=== PATIENT | male | born 1995 | race Caucasian/White ===

== ENCOUNTER 2019-05-18 13:15 | Outpatient (RCR) | payer OTHER, SELFPAY ==
[2019-05-11 12:56] VITALS: BP 158/76; PULSE 86; RESP 16; BMI 39.5
--- NOTE | 2019-05-11 15:20 | HP.PCM_ITS ---
(1) Burn of second degree of right foot, initial encounter Status: Acute Current Visit: Yes Code(s): T25.221A - Burn of second degree of right foot, initial encounter History of Present Illness Date of Service: 05/11/19 Chief Complaint: burn to 3,4,5 right toes, happened at work 05/08/19 History of Wound: This is a 24-year-old white male who presents to the wound healing center today with complaint of burn to his right foot. 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 This c aused second-degree darnell to his right third, fourth, and fifth toes and to the plantar aspect of his right foot as well. He sought medical attention in the emergency department and has been utilizing Bactroban 3 times a day. He states that his blisters are somewhat improving. Denies any systemic signs of infection at this time such as fever or chills. Denies any drainage. Denies any other aggravating relieving factors. He is taking NSAIDs for pain and swelling. All other systems reviewed and negative with exception of those listed above. He did have his tetanus vaccine updated as well. Past Medical History Surgical History: no surgical history, noncontributory Allergies/Adverse Reactions: Allergies No Known Allergies Allergy (Verified 05/11/19 13:20) Home Medications: Ambulatory Orders Medication Instructions Recorded Naproxen 500 mg PO Q12H PRN 05/11/19 Smoking Status: Never smoker Review of Systems Constitutional: Denies: Chills, Fever, Weight Change Eyes: Denies: Pain, Vision Change HEENT: Denies: Difficulty Hearing, Difficulty Swallowing, Sinus Congestion Cardiovascular: Denies: Chest Pain, Palpitations Respiratory: Denies: Cough, Shortness of Breath Gastrointestinal: Denies: Diarrhea, Nausea, Vomiting Genitourinary: Denies: Dysuria, Hematuria Skin: Reports: Wounds - See HPI Endocrine: Denies: Heat/ Cold Intolerance, Polydipsia, Polyuria Hematologic/ Lymphatic: Denies: Easy Bruising, Easy Bleeding - Physical Exam Vital Signs Pulse Resp BP 86 16 158/76 H 05/11/19 12:56 05/11/19 12:56 05/11/19 12:56 General: Alert, Oriented x3, Cooperative, No apparent distress HEENT: Atraumatic Oral: Moist Mucosa Lungs: Clear to auscultation, Normal air movement, No rhonchi, No wheeze Cardiovascular: Regular rate, Regular Rhythm Abdomen: Soft, Non Tender, Obese Extremities: No clubbing, No cyanosis, No edema, Peripheral Pulses Normal Skin: Ulcer/ Wound - Second-degree burn with blisters present to right third fourth and fifth toe on the plantar aspect, also blistering noted to the right plantar midfoot and right lateral foot as well, no redness, streaking, or warmth noted at this time Wound Measurements and Assessment WC - Nurse 1 - General Ulcer Measurement Start: 05/11/19 12:54 Freq: Status: Active Protocol: Activity Type Activity Date Activity User E-Sign Co-Sign Detail Recorded Client Recorded Date Recorded By Document 05/11/19 12:56 [facility] [id number] 05/11/19 13:19 [facility] 05/11/19 12:56 Wound Center Nurse 1 [Ulcer Assessment] #3- R LATERAL FOOT (BURN) -Combined with other wound No -Current Size (cm) - Length 1.3 -Current Size (cm) - Width 0.9 -Current Size (cm) - Depth 0.1 -Total Square Cm 1.17 -Photo Taken No -Epithelialization None Present -Tunneling No -Undermining/Tunneling No -Circular Undermining No -Exudate Amt None Present -Texture (Yamilex-wound Skin Appearance) Assessed -Moisture (Yamilex-wound Skin Appearance Assessed,Dry/ ) Scaly -Color (Yamilex-wound Skin Appearance) Assessed -Temperature (Yamilex-wound Skin No Abnormality Appearance) (Pt Warm) -Tenderness on Palpation (Yamilex-wound No Skin Appearance) -Ulcer Cleansing SOAPY WATER -Foul Odor after Cleansing No -Anesthetic Used 5% Lidocaine Gel #2- R FOOT 3RD, 4TH, 5TH DIGIT CLUSTER (BURN) -Combined with other wound No -Current Size (cm) - Length 1.9 -Current Size (cm) - Width 5.1 -Current Size (cm) - Depth 0.1 -Total Square Cm 9.69 -Date of Last Picture (Recall this 05/11/19 field) -Photo Taken Yes -Epithelialization None Present -Tunneling No -Undermining/Tunneling No -Circular Undermining No -Exudate Amt None Present -Texture (Yamilex-wound Skin Appearance) Assessed -Moisture (Yamilex-wound Skin Appearance Assessed,Dry/ ) Scaly -Color (Yamilex-wound Skin Appearance) Assessed -Temperature (Yamilex-wound Skin No Abnormality Appearance) (Pt Warm) -Tenderness on Palpation (Yamilex-wound No Skin Appearance) -Ulcer Cleansing SOAPY WATER -Foul Odor after Cleansing No -Anesthetic Used 5% Lidocaine Gel #1- R PLANTAR FOOT CLUSTER (BURN) -Combined with other wound No -Current Size (cm) - Length 5 -Current Size (cm) - Width 3.4 -Current Size (cm) - Depth 0.1 -Total Square Cm 17.0 -Date of Last Picture (Recall this 05/11/19 field) -Photo Taken Yes -Epithelialization None Present -Tunneling No -Undermining/Tunneling No -Circular Undermining No -Exudate Amt None Present -Wound Margin Flat & Intact -Texture (Yamilex-wound Skin Appearance) Assessed -Moisture (Yamilex-wound Skin Appearance Assessed,Dry/ ) Scaly -Color (Yamilex-wound Skin Appearance) Assessed -Temperature (Yamilex-wound Skin No Abnormality Appearance) (Pt Warm) -Tenderness on Palpation (Yamilex-wound No Skin Appearance) -Ulcer Cleansing SOAPY WATER -Foul Odor after Cleansing No -Anesthetic Used 5% Lidocaine Gel [Edema Assessment] -Lower Limb Edema Present Yes -Right Calf (cm) 43 -Right Ankle (cm) 24.9 -Left Calf (cm) 42.8 -Left Ankle (cm) 24.1 WC - Nurse 2 - General Ulcer CM Notes Start: 05/11/19 12:54 Freq: Status: Active Protocol: Activity Type Activity Date Activity User E-Sign Co-Sign Detail Recorded Client Recorded Date Recorded By Document 05/11/19 13:50 MW [id number] 05/11/19 13:54 MW 05/11/19 13:50 Wound Center Nurse 2 [Procedure/Treatment] #3- R LATERAL FOOT (BURN) -Time 13:50 -Correct Patient Yes -Correct Side, Site, Position Yes -Correct Procedure Yes -Procedure Performed No -Wound/Ulcer Outcome Not Healed -Ulcer Cleansing Rinsed/ Irrigated with Saline -Foul Odor after Cleansing No -Bleeding Controlled with NA -Offloading No -Treatment Response Procedure Tolerated Well #2- R FOOT 3RD, 4TH, 5TH DIGIT CLUSTER (BURN) -Time 13:50 -Correct Patient Yes -Correct Side, Site, Position Yes -Correct Procedure Yes -Procedure Performed No -Wound/Ulcer Outcome Not Healed -Ulcer Cleansing Rinsed/ Irrigated with Saline -Foul Odor after Cleansing No -Bioengineered Tissue No -Bleeding Controlled with NA -Offloading No -Treatment Response Procedure Tolerated Well #1- R PLANTAR FOOT CLUSTER (BURN) -Time 13:51 -Correct Patient Yes -Correct Side, Site, Position Yes -Correct Procedure Yes -Procedure Performed No -Wound/Ulcer Outcome Not Healed -Ulcer Cleansing Rinsed/ Irrigated with Saline -Foul Odor after Cleansing No -Bioengineered Tissue No -Bleeding Controlled with NA -Offloading No -Treatment Response Procedure Tolerated Well [See Physician Procedure note for Specifics] Pain Scale: 0-10 Numeric [Pain] -Is Patient Pain Free? Yes Neurological: Neuro grossly intact Psych/Mental Status: Normal Affect, Appropriate, Alert and oriented to time, place, person, mood and affect Debridement Note Post-Debridement Measurements/Treatment WC - Nurse 2 - General Ulcer CM Notes Start: 05/11/19 12:54 Freq: Status: Active Protocol: Activity Type Activity Date Activity User E-Sign Co-Sign Detail Recorded Client Recorded Date Recorded By Document 05/11/19 13:50 MW [id number] 05/11/19 13:54 MW 05/11/19 13:50 Wound Center Nurse 2 #3- R LATERAL FOOT (BURN) -Time 13:50 -Correct Patient Yes -Correct Side, Site, Position Yes -Correct Procedure Yes -Procedure Performed No -Wound/Ulcer Outcome Not Healed -Ulcer Cleansing Rinsed/ Irrigated with Saline -Foul Odor after Cleansing No -Bleeding Controlled with NA -Offloading No -Treatment Response Procedure Tolerated Well #2- R FOOT 3RD, 4TH, 5TH DIGIT CLUSTER ( BURN) -Time 13:50 -Correct Patient Yes -Correct Side, Site, Position Yes -Correct Procedure Yes -Procedure Performed No -Wound/Ulcer Outcome Not Healed -Ulcer Cleansing Rinsed/ Irrigated with Saline -Foul Odor after Cleansing No -Bioengineered Tissue No -Bleeding Controlled with NA -Offloading No -Treatment Response Procedure Tolerated Well #1- R PLANTAR FOOT CLUSTER (BURN) -Time 13:51 -Correct Patient Yes -Correct Side, Site, Position Yes -Correct Procedure Yes -Procedure Performed No -Wound/Ulcer Outcome Not Healed -Ulcer Cleansing Rinsed/ Irrigated with Saline -Foul Odor after Cleansing No -Bioengineered Tissue No -Bleeding Controlled with NA -Offloading No -Treatment Response Procedure Tolerated Well Pain Scale: 0-10 Numeric Is Patient Pain Free? Yes No debridement was completed today Assessment/Plan Active Problems Burn of second degree of right foot, initial encounter (Acute) Assessment: See above diagnoses Plan: The patient was seen and examined at the wound center today and was updated on the plan of care. No debridement indicated today. The patients wound care will consist of: Application of Bactroban cover with Adaptic and gauze and change daily. Educated on the importance of leg elevation. Continue with restrictions as set forth by prior occupational health visit. Patient educated on the importance of diet on wound healing and instructed to increase protein and vitamin C intake. Patient verbalized understanding. Patient will follow up at wound healing center in one week or sooner if needed. This note was generated with [employer] dictation software. It may contain incorrect words, s pelling, and punctuation that were not noted in checking the note before signing. Code Visit Office Visits / Consults: [id number] OV L4 New
[2019-05-18 13:36] VITALS: BP 132/75; PULSE 80; RESP 18; TEMP 37.2; BMI 39.5
--- NOTE | 2019-05-18 16:54 | PN.PCM_ITS ---
(1) Burn of second degree of right foot, initial encounter Status: Acute Current Visit: Yes Code(s): T25.221A - Burn of second degree of right foot, initial encounter Type of Wound Date of Service: 05/18/19 Chief Complaint: burn to 3,4,5 right toes, happened at work 05/08/19 History of Wound: This is a 24-year-old white male who presents to the wound healing center today with complaint of burn to his right foot. 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 This caused second-degree darnell to his right third, fourth, and fifth toes and to the plantar aspect of his right foot as well. He sought medical attention in the emergency department and has been utilizing Bactroban 3 times a day. He states that his blisters are somewhat improving. Denies any systemic signs of infection at this time such as fever or chills. Denies any drainage. Denies any other aggravating relieving factors. He is taking NSAIDs for pain and swelling. All other systems reviewed and negative with exception of those listed above. He did have his tetanus vaccine updated as well. Progress of Wound: His blisters have improved in size and a lot of the extracellular fluid has been reabsorbed, however site is very macerated at this time to his third fourth and fifth toes, therefore silver cell ordered to be wrapped with gauze daily. No indication for debridement at this time as of now. No new concerns from the patient. - Physical Exam Vital Signs Temp Pulse Resp BP 99 F 80 18 132/75 H 05/18/19 13:36 05/18/19 13:36 05/18/19 13:36 05/18/19 13:36 General: Alert, Oriented x3, Cooperative, No apparent distress HEENT: Atraumatic Lungs: Clear to auscultation, Normal air movement Cardiovascular: Regular rate, Regular Rhythm Abdomen: Soft, Non Tender Extremities: No clubbing, No cyanosis, No edema Skin: Ulcer/ Wound - Second degree burn to right foot with maceration noted, no signs of obvious infection at this time Wound Measurements and Assessment WC - Nurse 1 - General Ulcer Measurement Start: 05/11/19 12:54 Freq: Status: Active Protocol: Activity Type Activity Date Activity User E-Sign Co-Sign Detail Recorded Client Recorded Date Recorded By Document 05/18/19 13:36 RB [id number] 05/18/19 13:44 RB 05/18/19 13:36 Wound Center Nurse 1 [Ulcer Assessment] #3- R LATERAL FOOT (BURN) -Combined with other wound No -Current Size (cm) - Length 0.1 -Current Size (cm) - Width 0.1 -Current Size (cm) - Depth 0.1 -Total Square Cm 0.01 -Tunneling No -Undermining/Tunneling No -Circular Undermining No -Exudate Amt Small -Exudate Type Serosanguineous -Wound Margin Flat & Intact -Granulation Amt None Present (0 %) -Slough/Fibrin Yes -Necrosis Amt Large (67-100%) -Necrotic Tissue Type Adherent Slough -Structure Exposed N/A -Texture (Yamilex-wound Skin Appearance) Assessed -Moisture (Yamilex-wound Skin Appearance Maceration ) -Color (Yamilex-wound Skin Appearance) Assessed -Temperature (Yamilex-wound Skin No Abnormality Appearance) (Pt Warm) -Ulcer Cleansing Wound Cleanser -Foul Odor after Cleansing No -Anesthetic Used 4% Lidocaine Solution #2- R FOOT 3RD, 4TH, 5TH DIGIT CLUSTER (BURN) -Combined with other wound No -Current Size (cm) - Length 3.5 -Current Size (cm) - Width 5.5 -Current Size (cm) - Depth 0.1 -Total Square Cm 19.25 -Tunneling No -Undermining/Tunneling No -Circular Undermining No -Exudate Amt Small -Exudate Type Serosanguineous -Wound Margin Flat & Intact -Granulation Amt None Present (0 %) -Slough/Fibrin Yes -Necrosis Amt Large (67-100%) -Necrotic Tissue Type Adherent Slough -Structure Exposed N/A -Texture (Yamilex-wound Skin Appearance) Assessed -Moisture (Yamilex-wound Skin Appearance Maceration ) -Color (Yamilex-wound Skin Appearance) Assessed -Temperature (Yamilex-wound Skin No Abnormality Appearance) (Pt Warm) -Tenderness on Palpation (Yamilex-wound No Skin Appearance) -Ulcer Cleansing Wound Cleanser -Foul Odor after Cleansing No -Anesthetic Used 4% Lidocaine Solution #1- R PLANTAR FOOT CLUSTER (BURN) -Combined with other wound No -Current Size (cm) - Length 0.5 -Current Size (cm) - Width 0.3 -Current Size (cm) - Depth 0.1 -Total Square Cm 0.15 -Tunneling No -Undermining/Tunneling No -Circular Undermining No -Exudate Amt Small -Exudate Type Serosanguineous -Wound Margin Flat & Intact -Granulation Amt Small (1-33%) -Granulation Quality [place] -Slough/Fibrin Yes -Necrosis Amt Large (67-100%) -Necrotic Tissue Type Adherent Slough -Structure Exposed N/A -Texture (Yamilex-wound Skin Appearance) Assessed -Moisture (Yamilex-wound Skin Appearance Assessed ) -Color (Yamilex-wound Skin Appearance) Assessed -Temperature (Yamilex-wound Skin No Abnormality Appearance) (Pt Warm) -Tenderness on Palpation (Yamilex-wound No Skin Appearance) -Ulcer Cleansing Wound Cleanser -Foul Odor after Cleansing No -Anesthetic Used 4% Lidocaine Solution WC - Nurse 2 - General Ulcer CM Notes Start: 05/11/19 12:54 Freq: Status: Active Protocol: Activity Type Activity Date Activity User E-Sign Co-Sign Detail Recorded Client Recorded Date Recorded By Document 05/18/19 13:49 [id number] 05/18/19 13:51 05/18/19 13:49 Wound Center Nurse 2 [Procedure/Treatment] #3- R LATERAL FOOT (BURN) -Correct Patient No -Correct Side, Site, Position No -Correct Procedure No -Procedure Performed No -Wound/Ulcer Outcome Not Healed #2- R FOOT 3RD, 4TH, 5TH DIGIT CLUSTER (BURN) -Correct Patient No -Correct Side, Site, Position No -Correct Procedure No -Procedure Performed No -Wound/Ulcer Outcome Not Healed #1- R PLANTAR FOOT CLUSTER (BURN) -Correct Patient No -Correct Side, Site, Position No -Correct Procedure No -Procedure Performed No -Wound/Ulcer Outcome Not Healed [See Physician Procedure note for Specifics] Pain Scale: 0-10 Numeric [Pain] -Is Patient Pain Free? Yes Neurological: Neuro grossly intact Psych/Mental Status: Normal Affect, Appropriate, Alert and oriented to time, place, person, mood and affect Debridement Note Post-Debridement Measurements/Treatment WC - Nurse 2 - General Ulcer CM Notes Start: 05/11/19 12:54 Freq: Status: Active Protocol: Activity Type Activity Date Activity User E-Sign Co-Sign Detail Recorded Client Recorded Date Recorded By Document 05/11/19 13:50 MW [id number] 05/11/19 13:54 MW Document 05/18/19 13:49 JF [id number] 05/18/19 13:51 JF 05/11/19 05/18/19 13:50 13:49 Wound Center Nurse 2 #3- R LATERAL FOOT (BURN) -Time 13:50 -Correct Patient Yes No -Correct Side, Site, Position Yes No -Correct Procedure Yes No -Procedure Performed No No -Wound/Ulcer Outcome Not Healed Not Healed -Ulcer Cleansing Rinsed/ Irrigated with Saline -Foul Odor after Cleansing No -Bleeding Controlled with NA -Offloading No -Treatment Response Procedure Tolerated Well #2- R FOOT 3RD, 4TH, 5TH DIGIT CLUSTER ( BURN) -Time 13:50 -Correct Patient Yes No -Correct Side, Site, Position Yes No -Correct Procedure Yes No -Procedure Performed No No -Wound/Ulcer Outcome Not Healed Not Healed -Ulcer Cleansing Rinsed/ Irrigated with Saline -Foul Odor after Cleansing No -Bioengineered Tissue No -Bleeding Controlled with NA -Offloading No -Treatment Response Procedure Tolerated Well #1- R PLANTAR FOOT CLUSTER (BURN) -Time 13:51 -Correct Patient Yes No -Correct Side, Site, Position Yes No -Correct Procedure Yes No -Procedure Performed No No -Wound/Ulcer Outcome Not Healed Not Healed -Ulcer Cleansing Rinsed/ Irrigated with Saline -Foul Odor after Cleansing No -Bioengineered Tissue No -Bleeding Controlled with NA -Offloading No -Treatment Response Procedure Tolerated Well Pain Scale: 0-10 Numeric Is Patient Pain Free? Yes Yes No debridement was completed today Assessment/Plan Active Problems Burn of second degree of right foot, initial encounter (Acute) Assessment: See above diagnoses Plan: The patient was seen and examined at the wound center today and was updated on the plan of care. No debridement indicated today. The patients wound care will consist of: Application of versatile nonadherent cover with gauze and change daily. Educated on the importance of leg elevation. Continue with restrictions as set forth by prior occupational health visit. Patient educated on the importance of diet on wound healing and instructed to increase protein and vitamin C intake. Patient verbalized understanding. Patient will follow up at wound healing center in one week or sooner if needed. This note was generated with Dragon dictation software. It may contain incorrect words, spelling, and punctuation that were not noted in checking the note before signing. Code Visit Office Visits / Consults: [id number] OV L3 Est
== END 2019-05-20 23:59 ==
LOC: WC 13:15
PROVIDERS: Visit Provider Nurse Practitioner Family
DX: T25.221A Burn of second degree of right foot, initial encounter (principal); T25.231A Burn of second degree of right toe(s) (nail), initial encounter; X18.XXXA Contact with other hot metals, initial encounter; Y93.89 Activity, other specified; Y92.9 Unspecified place or not applicable; Y99.0 Civilian activity done for income or pay
CPT/HCPCS: 99203; 99213; G0463

== ENCOUNTER 2019-06-01 12:00 | Outpatient (RCR) | payer OTHER, SELFPAY ==
[2019-05-21 01:10] VITALS: BP 132/75; PULSE 80; RESP 18; TEMP 37.2
[2019-05-25 13:43] VITALS: BP 141/76; PULSE 85; RESP 18; TEMP 37.6; BMI 39.5
--- NOTE | 2019-05-25 17:34 | PCM.WC.PN ---
(1) Burn of second degree of right foot, initial encounter Status: Acute Current Visit: Yes Code(s): T25.221A - Burn of second degree of right foot, initial encounter Type of Wound Date of Service: 05/25/19 Chief Complaint: burn to 3,4,5 right toes, happened at work 05/08/19 History of Wound: This is a 24-year-old white male who presents to the wound healing center today with complaint of burn to his right foot. 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 This caused second-degree darnell to his right third, fourth, and fifth toes and to the plantar aspect of his right foot as well. He sought medical attention in the emergency department and has been utilizing Bactroban 3 times a day. He states that his blisters are somewhat improving. Denies any systemic signs of infection at this time such as fever or chills. Denies any drainage. Denies any other aggravating relieving factors. He is taking NSAIDs for pain and swelling. All other systems reviewed and negative with exception of those listed above. He did have his tetanus vaccine updated as well. Progress of Wound: His blisters have improved in size and a lot of the extracellular fluid has been reabsorbed, no further maceration and did well with silver cell. Patient did well with debridement today. No new concerns from the patient. Given the improvement, will release patient back to work with out restrictions as long as his wounds are covered at all times. RTW 05/29/19 - Physical Exam Vital Signs Temp Pulse Resp BP 99.7 F H 85 18 141/76 H 05/25/19 13:43 05/25/19 13:43 05/25/19 13:43 05/25/19 13:43 General: Alert, Oriented x3, Cooperative, No apparent distress HEENT: Atraumatic Oral: Moist Mucosa Lungs: Clear to auscultation, Normal air movement Cardiovascular: Regular rate, Regular Rhythm Abdomen: Soft, Obese Extremities: No clubbing, No cyanosis, No edema Skin: Ulcer/ Wound - see nursing documentation, slough and devitalized tissue pressure, no signs of infection at this time Wound Measurements and Assessment WC - Nurse 1 - General Ulcer Measurement Start: 05/25/19 13:43 Freq: Status: Active Protocol: Activity Type Activity Date Activity User E-Sign Co-Sign Detail Recorded Client Recorded Date Recorded By Document 05/25/19 13:43 RB [id number] 05/25/19 13:53 RB 05/25/19 13:43 Wound Center Nurse 1 [Ulcer Assessment] #3- R LATERAL FOOT (BURN) -Combined with other wound No -Current Size (cm) - Length 0.1 -Current Size (cm) - Width 0.1 -Current Size (cm) - Depth 0.1 -Total Square Cm 0.01 -Tunneling No -Undermining/Tunneling No -Circular Undermining No -Exudate Amt None Present -Wound Margin Flat & Intact -Granulation Amt Medium (34-66%) -Granulation Quality Meraux -Slough/Fibrin Yes -Necrosis Amt Small (1-33%) -Necrotic Tissue Type Adherent Slough -Structure Exposed N/A -Texture (Yamilex-wound Skin Appearance) Assessed,Callus -Moisture (Yamilex-wound Skin Appearance Assessed ) -Color (Yamilex-wound Skin Appearance) Assessed -Temperature (Yamilex-wound Skin No Abnormality Appearance) (Pt Warm) -Tenderness on Palpation (Yamilex-wound No Skin Appearance) -Ulcer Cleansing Wound Cleanser -Foul Odor after Cleansing No -Anesthetic Used 4% Lidocaine Solution #2- R FOOT 3RD, 4TH, 5TH DIGIT CLUSTER (BURN) -Combined with other wound No -Current Size (cm) - Length 2.5 -Current Size (cm) - Width 5 -Current Size (cm) - Depth 0.1 -Total Square Cm 12.5 -Tunneling No -Undermining/Tunneling No -Circular Undermining No -Exudate Amt Small -Exudate Type Serosanguineous -Wound Margin Flat & Intact -Granulation Amt Medium (34-66%) -Granulation Quality Meraux -Slough/Fibrin Yes -Necrosis Amt Small (1-33%) -Necrotic Tissue Type Adherent Slough -Structure Exposed N/A -Texture (Yamilex-wound Skin Appearance) Assessed,Callus -Moisture (Yamilex-wound Skin Appearance Assessed ) -Color (Yamilex-wound Skin Appearance) Assessed -Temperature (Yamilex-wound Skin No Abnormality Appearance) (Pt Warm) -Tenderness on Palpation (Yamilex-wound No Skin Appearance) -Ulcer Cleansing Wound Cleanser -Foul Odor after Cleansing No -Anesthetic Used 4% Lidocaine Solution #1- R PLANTAR FOOT CLUSTER (BURN) -Combined with other wound No -Current Size (cm) - Length 0.1 -Current Size (cm) - Width 0.1 -Current Size (cm) - Depth 0.1 -Total Square Cm 0.01 -Tunneling No -Undermining/Tunneling No -Circular Undermining No -Exudate Amt None Present -Wound Margin Flat & Intact -Granulation Amt Medium (34-66%) -Granulation Quality Meraux -Slough/Fibrin Yes -Necrosis Amt Small (1-33%) -Necrotic Tissue Type Adherent Slough -Structure Exposed N/A -Texture (Yamilex-wound Skin Appearance) Assessed,Callus -Moisture (Yamilex-wound Skin Appearance Assessed ) -Color (Yamilex-wound Skin Appearance) Assessed -Temperature (Yamilex-wound Skin No Abnormality Appearance) (Pt Warm) -Tenderness on Palpation (Yamilex-wound No Skin Appearance) -Ulcer Cleansing Wound Cleanser -Foul Odor after Cleansing No -Anesthetic Used 4% Lidocaine Solution WC - Nurse 2 - General Ulcer CM Notes Start: 05/25/19 13:43 Freq: Status: Active Protocol: Activity Type Activity Date Activity User E-Sign Co-Sign Detail Recorded Client Recorded Date Recorded By Document 05/25/19 14:00 JF [id number] 05/25/19 14:08 [email or web address] 05/25/19 14:00 Wound Center Nurse 2 [Procedure/Treatment] #3- R LATERAL FOOT (BURN) -Time 14:00 -Correct Patient No -Correct Side, Site, Position No -Correct Procedure No -Procedure Performed No -Post Debridement Size (cm) - Length 0 -Post Debridement Size (cm) - Width 0 -Post Debridement Size (cm) - Depth 0 -Total Square Cm 0 -Wound/Ulcer Outcome Healed- Epithelialized -Ulcer Cleansing Rinsed/ Irrigated with Saline -Foul Odor after Cleansing No -Bioengineered Tissue No -Bleeding Controlled with Pressure -Offloading Yes -Type of Offloading Surgical Shoe -Treatment Response Procedure Tolerated Well #2- R FOOT 3RD, 4TH, 5TH DIGIT CLUSTER (BURN) -Time 14:00 -Correct Patient Yes -Correct Side, Site, Position Yes -Correct Procedure Yes -Procedure Performed Yes -Type of Procedure Debridement -Clinical Debridement Subcutaneous -Post Debridement Size (cm) - Length 2 -Post Debridement Size (cm) - Width 1.5 -Post Debridement Size (cm) - Depth 0.1 -Total Square Cm 3.0 -Wound/Ulcer Outcome Not Healed -Ulcer Cleansing Rinsed/ Irrigated with Saline -Foul Odor after Cleansing No -Bioengineered Tissue No -Bleeding Controlled with Pressure -Offloading Yes -Type of Offloading Surgical Shoe -Treatment Response Procedure Tolerated Well #1- R PLANTAR FOOT CLUSTER (BURN) -Time 14:06 -Correct Patient Yes -Correct Side, Site, Position Yes -Correct Procedure Yes -Procedure Performed Yes -Type of Procedure Debridement -Clinical Debridement Subcutaneous -Post Debridement Size (cm) - Length 1.5 -Post Debridement Size (cm) - Width 1.5 -Post Debridement Size (cm) - Depth 0.1 -Total Square Cm 2.25 -Wound/Ulcer Outcome Not Healed -Ulcer Cleansing Rinsed/ Irrigated with Saline -Foul Odor after Cleansing No -Bioengineered Tissue No -Bleeding Controlled with Pressure -Offloading Yes -Type of Offloading Surgical Shoe -Treatment Response Procedure Tolerated Well [See Physician Procedure note for Specifics] Pain Scale: 0-10 Numeric [Pain] -Is Patient Pain Free? Yes Neurological: Neuro grossly intact Psych/Mental Status: Normal Affect, Appropriate, Alert and oriented to time, place, person, mood and affect Debridement Note Post-Debridement Measurements/Treatment WC - Nurse 2 - General Ulcer CM Notes Start: 05/25/19 13:43 Freq: Status: Active Protocol: Activity Type Activity Date Activity User E-Sign Co-Sign Detail Recorded Client Recorded Date Recorded By Document 05/25/19 14:00 JF [id number] 05/25/19 14:08 JAYSHREE 05/25/19 14:00 Wound Center Nurse 2 #3- R LATERAL FOOT (BURN) -Time 14:00 -Correct Patient No -Correct Side, Site, Position No -Correct Procedure No -Procedure Performed No -Post Debridement Size (cm) - Length 0 -Post Debridement Size (cm) - Width 0 -Post Debridement Size (cm) - Depth 0 -Total Square Cm 0 -Wound/Ulcer Outcome Healed- Epithelialized -Ulcer Cleansing Rinsed/ Irrigated with Saline -Foul Odor after Cleansing No -Bioengineered Tissue No -Bleeding Controlled with Pressure -Offloading Yes -Type of Offloading Surgical Shoe -Treatment Response Procedure Tolerated Well #2- R FOOT 3RD, 4TH, 5TH DIGIT CLUSTER ( BURN) -Time 14:00 -Correct Patient Yes -Correct Side, Site, Position Yes -Correct Procedure Yes -Procedure Performed Yes -Type of Procedure Debridement -Clinical Debridement Subcutaneous -Post Debridement Size (cm) - Length 2 -Post Debridement Size (cm) - Width 1.5 -Post Debridement Size (cm) - Depth 0.1 -Total Square Cm 3.0 -Wound/Ulcer Outcome Not Healed -Ulcer Cleansing Rinsed/ Irrigated with Saline -Foul Odor after Cleansing No -Bioengineered Tissue No -Bleeding Controlled with Pressure -Offloading Yes -Type of Offloading Surgical Shoe -Treatment Response Procedure Tolerated Well #1- R PLANTAR FOOT CLUSTER (BURN) -Time 14:06 -Correct Patient Yes -Correct Side, Site, Position Yes -Correct Procedure Yes -Procedure Performed Yes -Type of Procedure Debridement -Clinical Debridement Subcutaneous -Post Debridement Size (cm) - Length 1.5 -Post Debridement Size (cm) - Width 1.5 -Post Debridement Size (cm) - Depth 0.1 -Total Square Cm 2.25 -Wound/Ulcer Outcome Not Healed -Ulcer Cleansing Rinsed/ Irrigated with Saline -Foul Odor after Cleansing No -Bioengineered Tissue No -Bleeding Controlled with Pressure -Offloading Yes -Type of Offloading Surgical Shoe -Treatment Response Procedure Tolerated Well Pain Scale: 0-10 Numeric Is Patient Pain Free? Yes Wound debrided: right 4, 5 toes and plantar Type of Debridement: Excisional debridement Anesthesia Used: 5% Lidocaine Gel Depth: in the subcutaneous layer Percentage of wound debrided: 100 Instrument Used: 5mm curette Tissue Removed: slough and devitalized tissue Severity: Fat Layer Exposed Amount of bleeding with debridement: Mild Bleeding Controlled with: Pressure Patient tolerated procedure well Assessment/Plan Active Problems Burn of second degree of right foot, initial encounter (Acute) Assessment: See above diagnoses Plan: The patient was seen and examined at the wound center today and was updated on the plan of care. Tolerated debridement well today. The patients wound care will consist of: Application of silvercell nonadherent cover with gauze and change daily. Educated on the importance of leg elevation. Released back to work without restrictions as long as wounds are covered at all times. Patient educated on the importance of diet on wound healing and instructed to increase protein and vitamin C intake. Patient verbalized understanding. Patient will follow up at wound healing center in one week or sooner if needed. This note was generated with [employer] software. It may contain incorrect words, spelling, and punctuation that were not noted in checking the note before signing. [id number]: [id number] Alycia subq tissue 20 sq cm/<
[2019-06-01 12:22] VITALS: BP 144/64; PULSE 72; RESP 16; TEMP 37; BMI 39.5
--- NOTE | 2019-06-01 20:15 | PCM.WC.PN ---
(1) Burn of second degree of right foot, initial encounter Status: Acute Current Visit: Yes Code(s): T25.221A - Burn of second degree of right foot, initial encounter Type of Wound Date of Service: 06/01/19 Chief Complaint: burn to 3,4,5 right toes, happened at work 05/08/19 History of Wound: This is a 24-year-old white male who presents to the wound healing center today with complaint of burn to his right foot. 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 This caused second-degree darnell to his right third, fourth, and fifth toes and to the plantar aspect of his right foot as well. He sought medical attention in the emergency department and has been utilizing Bactroban 3 times a day. He states that his blisters are somewhat improving. Denies any systemic signs of infection at this time such as fever or chills. Denies any drainage. Denies any other aggravating relieving factors. He is taking NSAIDs for pain and swelling. All other systems reviewed and negative with exception of those listed above. He did have his tetanus vaccine updated as well. Progress of Wound: His blisters/darnell have healed without any signs of infection. No new concerns from the patient. Given the improvement, will release patient back to work with out restrictions. RTW 05/29/19 - Physical Exam Vital Signs Temp Pulse Resp BP 98.6 F 72 16 144/64 H 06/01/19 12:22 06/01/19 12:22 06/01/19 12:22 06/01/19 12:22 General: Alert, Oriented x3, Cooperative, No apparent distress HEENT: Atraumatic Oral: Moist Mucosa Lungs: Clear to auscultation, Normal air movement, No rhonchi, No wheeze, No rales Cardiovascular: Regular rate, Regular Rhythm Abdomen: Soft, Non Tender Extremities: No clubbing, No cyanosis, No edema Skin: Ulcer/ Wound - See nursing documentation, darnell have now healed without any signs of infection at this time. Wound Measurements and Assessment WC - Nurse 1 - General Ulcer Measurement Start: 05/25/19 13:43 Freq: Status: Active Protocol: Activity Type Activity Date Activity User E-Sign Co-Sign Detail Recorded Client Recorded Date Recorded By Document 06/01/19 12:22 [facility] [id number] 06/01/19 12:28 BM 06/01/19 12:22 Wound Center Nurse 1 [Ulcer Assessment] #2- R FOOT 3RD, 4TH, 5TH DIGIT CLUSTER (BURN) -Combined with other wound No -Current Size (cm) - Length 0.1 -Current Size (cm) - Width 0.1 -Current Size (cm) - Depth 0.1 -Total Square Cm 0.01 -Photo Taken No -Epithelialization Large 67-100% -Tunneling No -Undermining/Tunneling No -Circular Undermining No -Exudate Amt None Present -Granulation Amt None Present (0 %) -Slough/Fibrin Yes -Necrosis Amt Small (1-33%) -Necrotic Tissue Type Eschar -Texture (Yamilex-wound Skin Appearance) Assessed, Scarring -Moisture (Yamilex-wound Skin Appearance Assessed ) -Color (Yamilex-wound Skin Appearance) Assessed -Temperature (Yamilex-wound Skin No Abnormality Appearance) (Pt Warm) -Tenderness on Palpation (Yamilex-wound No Skin Appearance) -Ulcer Cleansing Rinsed/ Irrigated with Saline -Foul Odor after Cleansing No -Anesthetic Used 5% Lidocaine Gel #1- R PLANTAR FOOT CLUSTER (BURN) -Combined with other wound No -Current Size (cm) - Length 0.1 -Current Size (cm) - Width 0.1 -Current Size (cm) - Depth 0.1 -Total Square Cm 0.01 -Photo Taken No -Epithelialization Large 67-100% -Tunneling No -Undermining/Tunneling No -Circular Undermining No -Exudate Amt None Present -Wound Margin Distinct, Outline Attached -Slough/Fibrin No -Necrosis Amt None Present (0 %) -Texture (Yamilex-wound Skin Appearance) Assessed, Scarring -Moisture (Yamilex-wound Skin Appearance Assessed,Dry/ ) Scaly -Color (Yamilex-wound Skin Appearance) Assessed -Temperature (Yamilex-wound Skin No Abnormality Appearance) (Pt Warm) -Tenderness on Palpation (Yamilex-wound No Skin Appearance) -Ulcer Cleansing Rinsed/ Irrigated with Saline -Foul Odor after Cleansing No -Anesthetic Used 5% Lidocaine Gel WC - Nurse 2 - General Ulcer CM Notes Start: 05/25/19 13:43 Freq: Status: Active Protocol: Activity Type Activity Date Activity User E-Sign Co-Sign Detail Recorded Client Recorded Date Recorded By Document 06/01/19 12:32 [id number] 06/01/19 12:33 06/01/19 12:32 Wound Center Nurse 2 [Procedure/Treatment] #2- R FOOT 3RD, 4TH, 5TH DIGIT CLUSTER (BURN) -Correct Patient No -Correct Side, Site, Position No -Correct Procedure No -Procedure Performed No -Post Debridement Size (cm) - Length 0 -Post Debridement Size (cm) - Width 0 -Post Debridement Size (cm) - Depth 0 -Total Square Cm 0 -Wound/Ulcer Outcome Healed- Epithelialized #1- R PLANTAR FOOT CLUSTER (BURN) -Correct Patient No -Correct Side, Site, Position No -Correct Procedure No -Procedure Performed No -Post Debridement Size (cm) - Length 0 -Post Debridement Size (cm) - Width 0 -Post Debridement Size (cm) - Depth 0 -Total Square Cm 0 -Wound/Ulcer Outcome Healed- Epithelialized [See Physician Procedure note for Specifics] Pain Scale: 0-10 Numeric [Pain] -Is Patient Pain Free? Yes Neurological: Neuro grossly intact Psych/Mental Status: Normal Affect, Appropriate, Alert and oriented to time, place, person, mood and affect Debridement Note Post-Debridement Measurements/Treatment WC - Nurse 2 - General Ulcer CM Notes Start: 05/25/19 13:43 Freq: Status: Active Protocol: Activity Type Activity Date Activity User E-Sign Co-Sign Detail Recorded Client Recorded Date Recorded By Document 05/25/19 14:00 JF [id number] 05/25/19 14:08 Document 06/01/19 12:32 [id number] 06/01/19 12:33 05/25/19 06/01/19 14:00 12:32 Wound Center Nurse 2 #3- R LATERAL FOOT (BURN) -Time 14:00 -Correct Patient No -Correct Side, Site, Position No -Correct Procedure No -Procedure Performed No -Post Debridement Size (cm) - Length 0 -Post Debridement Size (cm) - Width 0 -Post Debridement Size (cm) - Depth 0 -Total Square Cm 0 -Wound/Ulcer Outcome Healed- Epithelialized -Ulcer Cleansing Rinsed/ Irrigated with Saline -Foul Odor after Cleansing No -Bioengineered Tissue No -Bleeding Controlled with Pressure -Offloading Yes -Type of Offloading Surgical Shoe -Treatment Response Procedure Tolerated Well #2- R FOOT 3RD, 4TH, 5TH DIGIT CLUSTER ( BURN) -Time 14:00 -Correct Patient Yes No -Correct Side, Site, Position Yes No -Correct Procedure Yes No -Procedure Performed Yes No -Type of Procedure Debridement -Clinical Debridement Subcutaneous -Post Debridement Size (cm) - Length 2 0 -Post Debridement Size (cm) - Width 1.5 0 -Post Debridement Size (cm) - Depth 0.1 0 -Total Square Cm 3.0 0 -Wound/Ulcer Outcome Not Healed Healed- Epithelialized -Ulcer Cleansing Rinsed/ Irrigated with Saline -Foul Odor after Cleansing No -Bioengineered Tissue No -Bleeding Controlled with Pressure -Offloading Yes -Type of Offloading Surgical Shoe -Treatment Response Procedure Tolerated Well #1- R PLANTAR FOOT CLUSTER (BURN) -Time 14:06 -Correct Patient Yes No -Correct Side, Site, Position Yes No -Correct Procedure Yes No -Procedure Performed Yes No -Type of Procedure Debridement -Clinical Debridement Subcutaneous -Post Debridement Size (cm) - Length 1.5 0 -Post Debridement Size (cm) - Width 1.5 0 -Post Debridement Size (cm) - Depth 0.1 0 -Total Square Cm 2.25 0 -Wound/Ulcer Outcome Not Healed Healed- Epithelialized -Ulcer Cleansing Rinsed/ Irrigated with Saline -Foul Odor after Cleansing No -Bioengineered Tissue No -Bleeding Controlled with Pressure -Offloading Yes -Type of Offloading Surgical Shoe -Treatment Response Procedure Tolerated Well Pain Scale: 0-10 Numeric Is Patient Pain Free? Yes Yes No debridement was completed today Assessment/Plan Active Problems Burn of second degree of right foot, initial encounter (Acute) Assessment: See above diagnoses Plan: The patient was seen and examined at the wound center today and was updated on the plan of care. His darnell are now healed without any signs of infection at this time. Educated on the importance of leg elevation. Released back to work without restrictions. Patient educated on the importance of diet on wound healing and instructed to increase protein and vitamin C intake. Patient verbalized understanding. Patient will be discharged from the wound healing center. This note was generated with [employer] dictation software. It may contain incorrect words, spelling, and punctuation that were not noted in checking the note before signing. Office Visits / Consults: [id number] [facility] Est
== END 2019-06-20 23:59 ==
LOC: WC 12:00
PROVIDERS: Visit Provider Nurse Practitioner Family
DX: T25.221A Burn of second degree of right foot, initial encounter (principal); T25.231A Burn of second degree of right toe(s) (nail), initial encounter; X18.XXXA Contact with other hot metals, initial encounter; Y93.89 Activity, other specified; Y92.9 Unspecified place or not applicable; Y99.0 Civilian activity done for income or pay
CPT/HCPCS: 11042; 99213; G0463